=== PATIENT | female | born 1965 | race Caucasian/White ===

== ENCOUNTER 2018-01-01 10:45 | Emergency (ER) | payer OTHER ==
[2018-01-01 10:52] VITALS: BP 129/85
--- NOTE | 2018-01-01 11:08 | UC ---
Skin Complaint HPI - HPI Summary HPI Summary: 52 yo female presents with "rash" over entire body that started last night. She tells me that she is currently on Augmentin for 10 days for a tooth infection - today is day 7. She has taken amoxicillin in the past with no troubles and has no known allergy to PCN. She has been outside more lately, but doesn't believe she came into contact with anything. Has no new soaps/detergents. Denies fever, chills, SOB, chest pain, or swelling. - History of Current Complaint Hx Obtained From: Patient Hx Last Menstrual Period: 3-4 mos ago Onset/Duration: Sudden Onset Timing: Constant Current Severity: None Pain Intensity: 0 <Schuyler Arana - Last Filed: 01/01/18 11:35> <Jh Bullock - Last Filed: 01/01/18 13:54> - History of Current Complaint Chief Complaint: UCRash Time Seen by Provider: 01/01/18 11:08 Stated Complaint: RASH - Allergy/Home Medications Allergies/Adverse Reactions: Allergies Allergy/AdvReac Type Severity Reaction Status Date / Time No Known Allergies Allergy Verified 01/01/18 10:52 Review of Systems Constitutional: Negative Skin: Rash Respiratory: Negative Cardiovascular: Negative Neurovascular: Negative Neurological: Negative Psychological: Negative All Other Systems Reviewed And Are Negative: Yes <Schuyler Arana - Last Filed: 01/01/18 11:35> PMH/Surg Hx/FS Hx/Imm Hx Previously Healthy: Yes Endocrine History: Dyslipidemia Cardiovascular History: Hypertension - Surgical History Surgical History: Yes Surgery Procedure, Year, and Place: CSP FUSION -LSP SURGERY, TRIPLE BYPASS ONE STENT - Family History Known Family History: Positive: Hypertension - Social History Lives: With Family Alcohol Use: None Substance Use Type: None Smoking Status (MU): Former Smoker Type: Cigarettes Amount Used/How Often: less than 10 Length of Time of Smoking/Using Tobacco: 30 years Have You Smoked in the Last Year: Yes Household Exposure Type: Cigarettes - Immunization History Most Recent Influenza Vaccination: never Most Recent Tetanus Shot: unsure Most Recent Pneumonia Vaccination: never <Schuyler Arana - Last Filed: 01/01/18 11:35> Physical Exam - Summary Physical Exam Summary: GENERAL: NAD. WDWN. No pain distress. SKIN: Scant scattered hives on the extremities <3mm in size. No streaking, bleeding, or drainage. NECK: Supple. Nontender. No lymphadenopathy. CHEST: No accessory muscle use. Breathing comfortably and in no distress. CV: RRR. Without m/r/g. NEURO: Alert. CN II-XII grossly intact. PSYCH: Age appropriate behavior. Triage Information Reviewed: Yes Vital Signs: Initial Vital Signs Temp 97.7 F 01/01/18 10:48 Pulse 100 01/01/18 10:48 Resp 20 01/01/18 10:48 BP 129/85 01/01/18 10:48 Pulse Ox 100 01/01/18 10:48 <Schuyler Arana - Last Filed: 01/01/18 11:35> Vital Signs: Initial Vital Signs Temp 97.7 F 01/01/18 10:48 Pulse 100 01/01/18 10:48 Resp 20 01/01/18 10:48 BP 129/85 01/01/18 10:48 Pulse Ox 100 01/01/18 10:48 <Jh Bullock - Last Filed: 01/01/18 13:54> Course/Dx - Course Course Of Treatment: Urticaria. I don't suspect her rash is due to the Augmentin as she has no known PCN allergy, has taken amoxicillin the past, and has been on augmentin for 7 days without issue. Given that her hives are on her extremities - it is likely that she came into contact with an allergen. - Diagnoses Provider Diagnoses: urticaria <Schuyler Arana Last Filed: 01/01/18 11:35> Discharge - Sign-Out/Discharge Documenting (check all that apply): Discharge/Admit/Transfer - Billing Disposition and Condition Condition: STABLE Disposition: Home <Schuyler Arana Filed: 01/01/18 11:35> - Billing Disposition and Condition Condition: STABLE Disposition: Home <Jh Bullock Last Filed: 01/01/18 13:54> - Discharge Plan Condition: Stable Disposition: HOME Prescriptions: predniSONE TAB* [Deltasone TAB*] 50 mg PO DAILY #5 tab Patient Education Materials: Acute Rash (ED) Referrals: Aly Murray MD [Primary Care Provider] - Additional Instructions: If you develop a fever, shortness of breath, chest pain, new or worsening symptoms - please call your PCP or go to the ED. Per institutional requirements, I have reviewed the chart, however, I was not consulted specifically or made aware of this patient by the above midlevel provider. I did not personally evaluate, interact with , or disposition this patient.
== END 2018-01-01 11:18 | disposition home or self-care (01) ==
LOC: UCEAST 10:45
DX: L50.9 Urticaria, unspecified (principal); I10 Essential (primary) hypertension; F17.210 Nicotine dependence, cigarettes, uncomplicated
CPT/HCPCS: 99212; G0463

== ENCOUNTER 2018-03-01 08:12 | Day surgery (SDC) | payer OTHER ==
[~2018-03-01 08:12] MED LIST: Buffered Lidocaine 0.9% SYRIN* 5 ML/SYR SYRINGE INTRADERM ONE; Dexamethasone TAB* 4 MG PO ONE; DiMENhydriNATE IV* 50 MG/ML VIAL IV PUSH PRN; Famotidine IV* 10 MG/ML 2 ML (20 mg) IV ONE; Morphine INJ* 2 MG/ML 1 ML SYRINGE (TWO MG - NEW SYRINGE VERSION) IV PRN; Naloxone* 0.4 MG/ML 1 ML VIAL IV PRN; Ondansetron TAB* 4 MG PO ONE; PROCHLORPERAZINE INJ 5 MG/ML 2 ML VIAL IV PRN; Scopolamine 1.5 mg* PATCH TRANSDERM PRN; fentaNYL* 50 MCG/ML 2 ML VIAL (100 MCG VIAL) IV PRN; oxyCODONE/Acetamin 5/325 MG* TAB PO PRN
[2018-03-01] MEDS ORDERED: Ondansetron ODT TAB* 4 MG ONE (08:23)
[2018-03-01] MEDS ORDERED: Dexamethasone TAB* 4 MG ONE (08:23)
[2018-03-01] MEDS ORDERED: Famotidine IV* 10 MG/ML 2 ML (20 mg) ONE (08:23)
[2018-03-01] MEDS ORDERED: ceFAZolin 2 GM PREMIX (*) 2 GM/50 ML BAG IVPB ONE (08:24)
[2018-03-01] MEDS ORDERED: Aspirin 81 mg CHEW TAB* 81 MG TAB.CHEW ONE (08:24)
[2018-03-01] MEDS ORDERED: Midazolam* 1 MG/ML 5 ML VIAL (5 MG) ONE (09:49)
[2018-03-01] MEDS ORDERED: fentaNYL* 50 MCG/ML 2 ML VIAL (100 MCG VIAL) ONE (09:49)
[2018-03-01] MEDS ORDERED: KETAMINE HCL* 50 MG/ML 10 ML VIAL ONE (09:49)
[2018-03-01] MEDS ORDERED: Ropivacaine* 2 MG/ML 20 ML VIAL (0.2%) ONE (10:52)
[2018-03-01] MEDS ORDERED: methylPREDNISolone ACETATE 80* 80 MG/ML 1 ML VIAL ONE (11:44)
[2018-03-01] MEDS ORDERED: EPHEDrine (Pressors)* 50 MG/ML VIAL ONE (12:13)
[2018-03-01] MEDS ORDERED: PROCHLORPERAZINE INJ 5 MG/ML 2 ML VIAL ONE ×2 (12:13→13:25)
[2018-03-01] MEDS ORDERED: Phenylephrine INJ* 10 MG/ML 1 ML VIAL (10 MG) ONE (12:13)
[2018-03-01] MEDS ORDERED: Lidocaine 2% PF * 5 ML VIAL ONE (12:13)
[2018-03-01] MEDS ORDERED: Propofol* 10 MG/ML 20 ML BTL IV PUSH ONE (12:13)
[2018-03-01] MEDS ORDERED: Scopolamine 1.5 mg* PATCH ONE (13:28)
[2018-03-01 13:41] VITALS: BP 137/90
--- NOTE | 2018-03-02 05:01 | OP ---
CC: PCP, Aly Murray MD * DATE OF OPERATION: 03/01/18 - [facility] DATE OF : 61 ATTENDING SURGEON: René Marte MD TECHNOLOGY RESOURCE TEACHER: ROBERTA Rabago. An medical administrative assistant was needed for the entirety of the case to help with positioning, retraction, and was utilized throughout all portions of the case. ANESTHESIOLOGIST: Dr. Umanzor. ANESTHESIA: General, interscalene block. 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 OPERATIVE PROCEDURE: 1. Left shoulder arthroscopy with extensive glenohumeral debridement. 2. Subacromial decompression with acromioplasty. 3. Distal clavicle excision. 4. Subpectoral biceps tenodesis. 5. An 80 mg Depo-Medrol injection. COMPLICATIONS: None. ESTIMATED BLOOD LOSS: Minimal. IMPLANTS USED: One 2.8 mm Q-FIX anchor. INDICATIONS: Cristine Olivares is a 52-year-old female with persistent shoulder pain that is refractory to conservative management including physical therapy, antiinflammatories, and injections. She is having persistent pain with her activities of daily living. She is unable to sleep at night. Risks and benefits of the surgery were discussed in length to include, but are not limited to, bleeding; infection; damage to nerves, vessels, surrounding structures; wound nonhealing; persistent pain; need for further surgery; scarring; stiffness; incomplete relief of symptoms; and the risk of anesthesia. DESCRIPTION OF PROCEDURE: The patient was greeted in the preoperative area by the attending surgeon. Correct extremity was marked and the consent was confirmed. The patient underwent interscalene nerve block by the anesthesiologist, after which she was brought back to the operating suite. She was placed supine position on operating table, then underwent general anesthesia and endotracheal intubation, after which she was placed in the right lateral decubitus position. All bony prominences padded. She was secured with a pegboard as well as an axillary roll was placed. Left arm was draped unsterile with 10-pounds of traction. The left shoulder was then prepped and draped in the usual sterile fashion beginning with chlorhexidine soap, scrub and alcohol wipe and a final prep with ChloraPrep. After appropriate surgical pause indicating site, side, procedure and administration of antibiotics, the standard posterolateral portal was made sharply with 11-blade. The scope was introduced into the joint. The joint was examined. There were grade 0 to 1 changes in the glenohumeral joint. The anterior, posterior, superior labrum had fraying. The superior labrum was torn as well type 2. Undersurface of the subscap had mild fraying about 5% or less. There was damage to the biceps mariah and there was abundant synovitis. The biceps was then tenotomized for lateral tenodesis. The undersurface of the supraspinatus was intact. The inferior recess was intact. Once the intraarticular work was completed, attention was directed to subacromial space. With the scope was positioned in subacromial space, the lateral portal was made in an outside fashion. The abundant synovitis and bursitis was removed using the shaver and the electrocautery device was used to help maintain hemostasis. The undersurface of the acromion was then skeletonized using electrocautery device. Once this is done, a 4-0 oval bur was then used to an acromioplasty. All excess debris was removed from this portion of the case. Attention was then directed to the distal clavicle. The 4-0 oval bur was brought to the anterior portal. The distal 8 mm of the clavicle were then debrided back using the bur. Her AC joint meniscus was identified also and this was debrided back using shaver and biters. All excess debris and fluid was removed. Once all the debris was removed, an 18-gauge needle was placed in the subacromial space under arthroscopic visualization. The shoulder was then lavaged and attention was directed to biceps. With the patient airplaned to the left side, a 15 blade was used to make an incision in line with the biceps tendon. Soft tissues were carefully dissected to expose the pec tendon. Soft tissues were carefully dissected and the remainder of dissection was done bluntly. The biceps was then identified in the groove and biceps were brought to the wound. The Q-FIX anchor was then used to drill unicortically and sutures were then passed in a Rigo-Gerardo type configuration to the tendon and tied down. Final images were obtained. Sterile dressings were applied. Cryo/Cuff and UltraSling were applied. She was awoken from anesthesia, transferred to PACU in stable condition. POSTOPERATIVE PLAN: She will be nonweightbearing in a sling for approximately 4 weeks. She will be discharged on pain medication and antibiotics. I will see the patient back in 10 to 14 days. She will start physical therapy next week. [id number]/[facility] #: [id number] MTDCristy
[2018-03-04] MEDS ORDERED: Scopolamine PATCH Remove* 1 NOTE MISC PATCH OFF ONE (05:38)
== END 2018-03-01 14:13 | disposition home or self-care (01) ==
LOC: OR 08:12
PROVIDERS: ATTEND Orthopaedic Surgery
DX: M19.012 Primary osteoarthritis, left shoulder (principal); M75.42 Impingement syndrome of left shoulder; G89.18 Other acute postprocedural pain; Z87.891 Personal history of nicotine dependence; Z95.1 Presence of aortocoronary bypass graft; I25.10 Atherosclerotic heart disease of native coronary artery without angina pectoris; E78.5 Hyperlipidemia, unspecified; Z95.5 Presence of coronary angioplasty implant and graft; M75.22 Bicipital tendinitis, left shoulder
CPT/HCPCS: A9270-GY; C1776; J0690; J0780; J1040; J2250; J2704; J2795; J3010; J8540

== ENCOUNTER → 2018-12-15 07:27 | Day surgery (SDC) | payer OTHER ==
[~2018-12-15 07:27] MED LIST changes: -Buffered Lidocaine 0.9% SYRIN* 5 ML/SYR SYRINGE INTRADERM ONE; -Dexamethasone TAB* 4 MG PO ONE; -DiMENhydriNATE IV* 50 MG/ML VIAL IV PUSH PRN; -Famotidine IV* 10 MG/ML 2 ML (20 mg) IV ONE; +Flumazenil* 0.1 MG/ML 5 ML MDV ONE; +Heparin 2 UNITS/ML IVPREMIX* 3,000 UNIT/1,500 ML BAG IV ONE; +Iodixanol 320 (CONTRAST) 100 ML SDV ONE; +Iohexol 350 (CONTRAST) 200 ML MDV IV ONE; +LORazepam TAB(*) 1 MG ONE; +Lidocaine 1% INJ* 10 MG/ML 30 ML SDV ONE; +Metoprolol Tartrate TAB* 25 MG ONE; +Midazolam* 1 MG/ML 5 ML VIAL (5 MG) ONE; -Morphine INJ* 2 MG/ML 1 ML SYRINGE (TWO MG - NEW SYRINGE VERSION) IV PRN; -Naloxone* 0.4 MG/ML 1 ML VIAL IV PRN; +Naloxone* 0.4 MG/ML 1 ML VIAL ONE; -Ondansetron TAB* 4 MG PO ONE; -PROCHLORPERAZINE INJ 5 MG/ML 2 ML VIAL IV PRN; -Scopolamine 1.5 mg* PATCH TRANSDERM PRN; -fentaNYL* 50 MCG/ML 2 ML VIAL (100 MCG VIAL) IV PRN; +fentaNYL* 50 MCG/ML 2 ML VIAL (100 MCG VIAL) ONE; -oxyCODONE/Acetamin 5/325 MG* TAB PO PRN
[2018-12-15 08:07] LABS: ABS Basophils 0.1 10^3/ul (0-0.2); ABS Eosinophils 0.3 10^3/ul (0-0.6); ABS Lymphocytes 3.3 10^3/ul (1.0-4.8); ABS Monocytes 0.5 10^3/ul (0-0.8); Hematocrit 43 % (35-47); Hemoglobin 14.7 g/dL (12.0-16.0); Lymphocyte % 40.5 %; Mean Corpuscular HGB Conc 34 g/dL (31-36); Mean Corpuscular Hemoglobin 33 pg (27-31); Mean Corpuscular Volume 95 fL (80-97); Mean Platelet Volume 9.5 fL (7.4-10.4); Nucleated Red Blood Cells % 0.1; Platelet Count 185 10^3/uL (150-450); Red Blood Count 4.51 10^6 /uL (3.70-4.87); Red Cell Distribution Width 13 % (10-15); White Blood Count 8.2 10^3/uL (3.5-10.8)
[2018-12-15 08:20] LABS: INR 0.99 (0.82-1.09)
[2018-12-15 08:22] LABS: BUN/Creatinine Ratio 17.7 (8-20); Calcium 9.7 mg/dL (8.6-10.3); EGFR African American 120.9 (>60); EGFR Non-African American 99.9 (>60); Potassium 3.7 mmol/L (3.5-5.0)
--- NOTE | 2018-12-15 12:42 | PN ---
Progress Note - Progress Note Date of Service: 12/15/18 SOAP: Subjective: Denies pain at right groin or elsewhere. Wants to go home. Objective: Selected Entries 12/15/18 12/15/18 11:51 12:01 Heart Rate 67 Respiratory 17 Rate Blood Pressure 105/75 (mmHg) Blood Pressure 82 Mean O2 Sat by Pulse 98 Oximetry NAD, AAO x 3 Right groin is soft, nontender Dressing is clean, dry and intact Palpable pulses in RLE at her baseline RLE is grossly neuromuscular intact Assessment: 53 YOF status post pelvic and BLE arteriography followed by AngioSeal percutaneous closure device to right common femoral arteriotomy. Plan: 1. Currently no focual occlusion or stenosis amenable to intervention ( angiographic images to be reviewed in more detail later). 2. Pletal 50 mg PO BID 3. Patient given exercise therapy walking regimen sheet with instructions on how to use such a regimen for outdoor walking instead of a treadmill. 4. IR clinic follow up in 4-6 weeks assess any improvement following pharmacotherapy and walking. 5. Patient was carefully instructed to call IR clinic if she experiences any symptoms associated with Pletal (GI issues, headache, arrhythmias, etc)
[2018-12-15 13:04] VITALS: BP 109/75
== END | disposition home or self-care (01) ==
LOC: CHICATH 07:27
PROVIDERS: ATTEND Radiology Diagnostic Radiology
DX: I70.223 Atherosclerosis of native arteries of extremities with rest pain, bilateral legs (principal); I70.213 Atherosclerosis of native arteries of extremities with intermittent claudication, bilateral legs; I25.119 Atherosclerotic heart disease of native coronary artery with unspecified angina pectoris; E78.5 Hyperlipidemia, unspecified; Z87.891 Personal history of nicotine dependence; M75.112 Incomplete rotator cuff tear or rupture of left shoulder, not specified as traumatic
CPT/HCPCS: 36415; 75716; 75736; 76937; 80048; 85025; 85610; 99156; 99157; A9270-GY; C1760; C1769; C1887; C1894; J1644; J2250; J2310; J3010